=== PATIENT | female | born 1995 | race Two or more races ===

== ENCOUNTER 2018-11-15 02:26 | Emergency (ER) | payer OTHER ==
[~2018-11-15] VITALS: Ht 165.1 cm; Wt 72.6 kg
[2018-11-15] MEDS ORDERED: MEDROLPACK PO (04:42)
[2018-11-15] MEDS ORDERED: EPIPEN 2-P0.3 MG/0.3 IM (04:42)
== END 2018-11-15 04:51 | disposition home or self-care (01) ==
LOC: ER 02:26
DX: T78.49XA Other allergy, initial encounter (principal); L50.8 Other urticaria